=== PATIENT | male | born 1955 | race Caucasian/White ===

== ENCOUNTER → 2018-09-22 08:06 | Outpatient (CLI) | payer OTHER, SELFPAY ==
[2018-09-22 09:12] LABS: Add Manual Diff / Slide Review NO; Basophils Absolute Auto 100 /uL (0-100); Basophils Percent Auto 1.1 % (0-2); Eosinophils Absolute Auto 300 /uL (0-450); Eosinophils Percent Auto 4.8 % (2-4); Hematocrit 45.8 % (41-53); Hemoglobin 15.8 g/dL (13.5-17.5); Lymphocytes Absolute Auto 2100 /uL (1100-4500); Lymphocytes Percent Auto 37.9 % (25-40); Mean Corpuscular HGB Conc 34.4 % (30-36); Mean Corpuscular Hemoglobin 31.1 PG (26-34); Mean Corpuscular Volume 90.3 fL (80-100); Monocytes Absolute Auto 500 /uL (0-900); Monocytes Percent Auto 8.5 % (3-14); Neutrophils Absolute Auto 2700 /uL (1500-7000); Neutrophils Percent Auto 47.7 % (50-75); Platelet Count 232 X10^3/uL (150-400); Red Blood Cell Count 5.07 X10^6/uL (4.5-5.9); Red Cell Distribution Width 12.7 % (11.6-14.8); White Blood Cell Count 5.6 X10^3/uL (4.5-11.0)
[2018-09-22 09:57] LABS: Alanine Aminotransferase 62 IU/L (21-72); Albumin Globulin Ratio 1.6 (1.0-2.8); Alkaline Phosphatase 45 U/L (38-126); Aspartate Aminotransferase 44 IU/L (17-59); Bilirubin Total 0.6 mg/dL (0.2-1.3); Blood Urea Nitrogen 16 mg/dL (9-20); Calcium 8.9 mg/dL (8.4-10.2); Carbon Dioxide 25 mmol/L (22-32); Chloride 107 mmol/L (98-107); Cholesterol 164 mg/dL (140-199); Estimated Glomerular Filt Rate > 60.0 mL/min (>60); Globulin 2.5 g/dL (1.7-4.1); Glucose 102 mg/dL (80-110); HDL Cholesterol 41 mg/dL (40-60); HEMOLYSIS < 15 (0-50); LDL Cholesterol Calculated 107 mg/dL (<100); Potassium 4.2 mmol/L (3.4-5.1); Sodium 138 mmol/L (137-145); Total Protein 6.5 g/dL (6.3-8.2); Triglycerides 79 mg/dL (35-150)
[2018-09-22 10:14] LABS: Prostate Specific Antigen Scrn 1.19 ng/mL (0.1-4.0)
[2018-09-22 10:17] LABS: TSH w/ Reflex to FT4 2.14 uIU/mL (0.47-4.68)
== END ==
PROVIDERS: Visit Provider Nurse Practitioner
DX: F17.200 Nicotine dependence, unspecified, uncomplicated (principal); F32.9 Major depressive disorder, single episode, unspecified; R03.0 Elevated blood-pressure reading, without diagnosis of hypertension; Z00.00 Encounter for general adult medical examination without abnormal findings
CPT/HCPCS: 36415; 80053; 80061; 84443; 85025; G0103

== ENCOUNTER → 2019-04-28 12:39 | Outpatient (CLI) | payer OTHER, SELFPAY | PROVIDERS: PCP Nurse Practitioner; Visit Provider Orthopaedic Surgery Foot and Ankle Surgery | DX: Z01.818 Encounter for other preprocedural examination (principal) | CPT/HCPCS: 93005 ==

== ENCOUNTER → 2020-03-13 11:40 | Outpatient (CLI) | payer OTHER, SELFPAY ==
--- NOTE | 2020-03-13 | DI.MRI.S_ITS ---
PROCEDURE: MR KNEE LT WO CON INDICATIONS: Pain in left knee TECHNIQUE: Noncontrast sagittal PD fast spin echo and T2 fast spin echo with fat saturation, sagittal 3-D FLASH with fat saturation; coronal T1 spin echo and PD fast spin echo with fat saturation, and axial PD fast spin echo with fat saturation through the knee. COMPARISON: [facility] [place], CR, XR KNEE ARTHRITIC SERIES LT, 02/14/2020, 15:13. FINDINGS: Image quality: Excellent. Menisci: There is complex tearing of the posterior horn and body of the medial meniscus with horizontal oblique and shallow radial component. There is mild free edge fibrillation of the body of the lateral meniscus without discrete tear. Cruciate ligaments: The anterior and posterior cruciate ligaments appear intact. Medial structures: The medial collateral ligament appears intact. The semimembranosus tendon insertions and meniscocapsular junction appear intact. Visualized portions of the pes anserinus tendons appear normal. No abnormal bursal fluid. Lateral structures: The lateral collateral ligament, long and short heads of the biceps femoris tendon appear intact. The popliteus tendon appears intact. No signs of posterolateral corner injury. Iliotibial band appears normal. Anterior structures: The quadriceps and patellar tendons appear intact. Patellar alignment is normal. Mild chronic osseous irregularity is seen at the tibial tubercle. Enthesophytes are noted at the distal quadriceps tendon insertion. No femoral trochlear dysplasia or ventral trochlear prominence. No edema in the infrapatellar fat pad. Bones and cartilage: No bone marrow contusions or fractures. Focal high-grade cartilage loss is seen in the central weight-bearing portion of the medial tibial plateau superimposed on generalized college thinning with focal subchondral edema. No focal defect is seen in the lateral or anterior compartment articular cartilage. Joint space: There is a small joint effusion. There is a trace medial popliteal cyst. IMPRESSION: 1. Complex tearing of the posterior horn and body of the medial meniscus with horizontal oblique and shallow radial components. 2. Mild free edge fibrillation of the body of the lateral meniscus without a discrete tear. 3. 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 4. Small joint effusion. Dictated by: Hadley Elise M.D. on 03/13/2020 at 14:07 Approved by: Hadley Elise M.D. on 03/13/2020 at 14:15
== END ==
PROVIDERS: PCP Nurse Practitioner; Referring Provider Orthopaedic Surgery Foot and Ankle Surgery; Visit Provider Orthopaedic Surgery Foot and Ankle Surgery
DX: M25.562 Pain in left knee (principal); S83.232A Complex tear of medial meniscus, current injury, left knee, initial encounter; M94.262 Chondromalacia, left knee; M25.462 Effusion, left knee
CPT/HCPCS: 73721

== ENCOUNTER → 2020-04-06 09:39 | Outpatient (CLI) | payer OTHER, SELFPAY ==
[2020-04-06 10:31] LABS: Add Manual Diff / Slide Review NO; Basophils Absolute Auto 100 /uL (0-100); Basophils Percent Auto 1.1 % (0-2); Eosinophils Absolute Auto 200 /uL (0-450); Eosinophils Percent Auto 3.3 % (2-4); Hematocrit 43.6 % (41-53); Hemoglobin 14.9 g/dL (13.5-17.5); Lymphocytes Absolute Auto 2000 /uL (1100-4500); Lymphocytes Percent Auto 35.3 % (25-40); Mean Corpuscular Hemoglobin 30.3 PG (26-34); Mean Corpuscular Volume 89.1 fL (80-100); Monocytes Absolute Auto 500 /uL (0-900); Monocytes Percent Auto 8.3 % (3-14); Neutrophils Absolute Auto 3000 /uL (1500-7000); Platelet Count 226 X10^3/uL (150-400); Red Cell Distribution Width 12.7 % (11.6-14.8); White Blood Cell Count 5.7 X10^3/uL (4.5-11.0)
[2020-04-06 10:44] LABS: Alanine Aminotransferase 33 IU/L (<50); Albumin 4.1 g/dL (3.5-5.0); Albumin Globulin Ratio 1.6 (1.0-2.8); Alkaline Phosphatase 46 U/L (38-126); Aspartate Aminotransferase 28 IU/L (17-59); BUN Creatinine Ratio 22.4 (6-22); Bilirubin Total 0.6 mg/dL (0.2-1.3); Blood Urea Nitrogen 19 mg/dL (9-20); Calcium 8.8 mg/dL (8.4-10.2); Carbon Dioxide 28 mmol/L (22-32); Chloride 104 mmol/L (98-107); Cholesterol 165 mg/dL (140-199); Estimated Glomerular Filt Rate > 60.0 mL/min (>60); Globulin 2.6 g/dL (1.7-4.1); Glucose 105 mg/dL (80-110); HDL Cholesterol 46 mg/dL (40-60); HEMOLYSIS < 15 (0-50); LDL Cholesterol Calculated 95 mg/dL (<100); Potassium 4.4 mmol/L (3.4-5.1); Sodium 137 mmol/L (137-145); Total Protein 6.7 g/dL (6.3-8.2); Triglycerides 121 mg/dL (35-150)
[2020-04-06 11:15] LABS: Prostate Specific Antigen Scrn 1.19 ng/mL (0.1-4.0)
[2020-04-06 12:13] LABS: Free T3, Triiodothyronine Free 3.42 pg/mL (2.77-5.27); Free T4, Direct Thyroxine 1.13 ng/dL (0.78-2.19)
[2020-04-06 12:27] LABS: Thyroid Stimulating Hormone 1.79 uIU/mL (0.47-4.68)
== END ==
PROVIDERS: PCP Nurse Practitioner; Referring Provider Nurse Practitioner; Visit Provider Nurse Practitioner
DX: R03.0 Elevated blood-pressure reading, without diagnosis of hypertension (principal); Z13.29 Encounter for screening for other suspected endocrine disorder; Z12.5 Encounter for screening for malignant neoplasm of prostate
CPT/HCPCS: 36415; 80053; 80061; 84439; 84443; 84481; 85025; G0103

== ENCOUNTER 2020-09-13 15:59 | Emergency (ER) | payer OTHER, SELFPAY ==
[2020-09-13] VITALS (56 sets, daily range): BP systolic 140–166; BP diastolic 70–109; PULSE 53–77; RESP 16; TEMP 37.1; O2SAT 93–100; BMI 31.5
--- NOTE | 2020-09-13 15:59 | DI.RAD.S_ITS ---
PROCEDURE: XR TIBIA FUBULA RT 2V INDICATIONS: open fracture TECHNIQUE: 2 views of the tibia and fibula were acquired. COMPARISON: [facility], CR, XR ANKLE RT MIN 3V, 09/13/2020, 16:01. FINDINGS: Bones: There is a comminuted anteriorly displaced distal fibular metaphyseal fracture. This demonstrates resultant anterior dislocation at the tibiotalar joint space. Distal fibular fracture is also identified. Soft tissues: No suspicious soft tissue calcifications or masses. IMPRESSION: Comminuted distal tibial fracture with anterior dislocation at the tibiotalar joint space. Distal fibular fracture is also present. Dictated by: Niurka Melo M.D. on 09/13/2020 at 16:23 Approved by: Niurka Melo M.D. on 09/13/2020 at 16:24
--- NOTE | 2020-09-13 15:59 | DI.RAD.S_ITS ---
PROCEDURE: XR ANKLE RT MIN 3V INDICATIONS: open fracture TECHNIQUE: 3 views of the ankle were acquired. COMPARISON: [facility], , XR TIBIA FIBULA RT 2V, 09/13/2020, 16:01. FINDINGS: Bones: Comminuted distal tibial fracture with anterior dislocation at the tibiotalar joint space. There is a displaced distal fibular fracture. Soft tissues: Prominent ankle edema is noted. Achilles tendon appears normal. IMPRESSION: Comminuted distal tibial fracture with anterior tibiotalar joint space dislocation. Displaced distal fibular fracture is noted. Dictated by: Niurka Melo M.D. on 09/13/2020 at 16:25 Approved by: Niurka Melo M.D. on 09/13/2020 at 16:25
--- NOTE | 2020-09-13 16:01 | ED.GENADULT ---
HPI - General Adult General Chief complaint: Extremity Injury, Lower Stated complaint: Fell off 12 ft ladder Time Seen by Provider: 09/13/20 16:01 Source: patient Mode of arrival: EMS Limitations: no limitations History of Present Illness HPI narrative: 65-year-old male not on anticoagulation who is here for evaluation of injuries that he sustained when he was coming down off of a ladder and either slipped off the ladder or the ladder slipped and he fell. Unsure exactly how he landed. He did not hit his head. There was no loss of conscious. EMS was called secondary to an obvious open right leg fracture. He did receive fentanyl prior to arrival. He reports no other injuries with the event. Related Data Previous Rx's Medication Instructions Recorded acyclovir 200 mg capsule 200 mg PO 5XD #60 cap 04/17/20 bupropion HCl 150 mg tablet,12 hr See Rx Instructions .ROUTE 04/17/20 sustained-release .COMPLEX #90 tab sildenafil 50 mg tablet 50 mg PO DAILY PRN #30 tab 04/17/20 Allergies Allergy/AdvReac Type Severity Reaction Status Date / Time pollen extracts Allergy Intermediate Verified 09/13/20 18:03 [POLLEN EXTRACTS] tadalafil [From Cialis] AdvReac Mild nausea, Verified 09/13/20 18:03 diarrhea, GERD. Review of Systems Constitutional Constitutional: Denies fever(s), Denies frequent falls and Denies headache(s) Eyes Eyes: Denies change in vision ENT Ears, Nose, Mouth, and Throat: Reports system reviewed and no additional complaints, except as documented and Denies headache(s) Cardiovascular Cardiovascular: Denies chest pain and Denies dyspnea Respiratory Respiratory: Denies dyspnea Gastrointestinal Gastrointestinal: Denies abdominal pain, Denies nausea and Denies vomiting Genitourinary Genitourinary: Denies dysuria Genitourinary: Denies dysuria Musculoskeletal Musculoskeletal: Denies back pain and Denies myalgias Integumentary/Breasts Comments: Open fracture right tibia Neurologic Neurologic: Denies frequent falls and Denies headache(s) Psychiatric Psychiatric: Reports system reviewed and no additional complaints, except as documented Hematologic/Lymphatic On Anticoagulants: No Allergic/Immunologic Allergic/Immunologic: Reports system reviewed and no additional complaints, except as documented Patient History Medical History Achilles tendon rupture Actinic keratosis (Unknown) Alcohol cessation counseling Alcohol use disorder (05/19/17) Basal cell carcinoma (07/2017) Cessation of tobacco use in previous 12 months Colon polyps (~2013) Current smoker (05/19/17) Depression (Unknown) Herpes (~1960) Left knee pain Measles Mumps Tear of meniscus of left knee Family History (Updated 08/05/17 @ 00:00 by Conversion Provider) Grandfather Cancer Sister Age: 66 Diabetes mellitus Hypertension Father No problems noted. Mother No problems noted. Grandmother No problems noted. Grandfather No problems noted. Grandmother No problems noted. Social History Smoking Status: Current every day smoker (quitting) alcohol intake: current substance use type: marijuana Smoking Status: Current every day smoker (quitting) Exam Initial Vital Signs Initial Vital Signs: Vital Signs Pulse Rate 63 09/13/20 16:09 Pulse Oximetry 96 09/13/20 16:09 Const General: cooperative Limitations: mental status not altered HENAZ Head: normal to inspection and normocephalic Nose: external nose normal Face and sinus: normal facial exam Eyes General: appearance normal, both eyes and all related structures Pupils: PERRL Chest Chest: No crepitus and No tenderness Resp Effort & Inspection: normal respiratory effort Auscultation: clear to auscultation bilaterally Cardio Rate: regular rate Rhythm: regular rhythm Pulses: dorsalis pedis present on the right GI Inspection: non-distended Palpation: soft, No firm and No tender Back/Spine/Pelvis Cervical Spine: No cervical spinal tenderness Thoracic/Lumbar Spine: No thoracic spinal tenderness and No lumbar spinal tenderness Sacroiliac Joints: nontender Skin Other: Open fracture to the medial aspect of the right distal tibia. Neuro General: patient alert, patient awake and patient oriented x3 Cognition: normal cognition Speech: speech normal Sensory Exam: no sensory deficits noted Other: Sensation intact to light touch right foot Extrem General: capillary refill normal Other: The bilateral upper extremities in the left lower extremity are unremarkable. His pelvis is stable. Has no tenderness to his right hip. His right knee is unremarkable. Patient does have a obvious open fracture to the right distal tibia. Psych Appearance: grossly normal and well kempt Procedures Orthopedic Fracture Reduction Fracture #1: Time Out Performed: Yes Side: right Fracture Reduction Location: tibia and fibula Analgesia: procedural sedation Technique: direct manipulation Post Reduction X-rays Demonstrate: acceptable reduction Post-reduction neuro exam: intact Post-reduction vascular exam: intact Splint Applied: Yes Patient Tolerated Procedure: Well and No complications Orthopedic Splinting/Casting Injury #1: Side: right Lower Extremity Injury Location: ankle Lower Extremity Immobilizer: posterior splint and stirrup splint Post splinting neuro exam: intact Post splinting vascular exam: intact Placed by: Provider Procedural Sedation Consent signed: No Time out performed: Yes Indication: fracture/dislocation reduction Presedation Evaluation: See HPI ASA Class: II Mallampati Airway Classification: Class II Preparation: laboratory monitor applied, pulse oximeter, capnometry used and supplemental O2 applied IV Propofol dose (mg): 120 Intraservice time/total sedation time (min): 15 ED Sedation Level: Moderate (Concious) Patient Tolerated Procedure: Well and No complications Complications: none Scores GCS Jamari coma scale eye opening: Spontaneous Jamari coma scale verbal response: Orientated Sarver coma scale motor response: Obey commands Sarver coma scale total score: 15 Nexus Score for C-Spine Focal Neurologic deficit present: No Midline spinal tenderness present: No Altered level of conciousness present: No Intoxication present: No Distracting Injury Present: No Nexus Criteria for C-spine: 0 Course Orders Ordered: ED Orders 09/13/20 15:59 XR ankle RT min 3V Stat XR tibia fibula RT 2V Stat 09/13/20 16:00 Basic Metabolic Panel Stat Complete Blood Count AUTO DIFF Stat 09/13/20 16:03 COVID19 - ADMIT ([facility] swab/PCR) Stat 09/13/20 17:04 RT Consult Eval and Treat Now 09/13/20 17:38 CT LE RT wo con Stat Sodium Chloride (Normal Saline 0.9%) 1,000 mls @ 125 mls/hr IV CONT WENDY Last Infusion: 09/13/20 18:50 Dose: 0 mls/hr Documented by: [email or web address] Admin: 09/13/20 16:23 Dose: 125 mls/hr Documented by: [email or web address] Discontinued Medications Cefazolin Sodium (Cefazolin 1 Gm Vial) 2 gm IV NOW ONE Stop: 09/13/20 16:00 Last Admin: 09/13/20 16:22 Dose: 2 gm Documented by: [email or web address] Diphtheria/Tetanus/Acell Pertussis (Tet,Diph,Pertuss(Acell),Vac/Pf 0.5 Ml Syringe) 0.5 ml IM .ONCE ONE Stop: 09/13/20 16:00 Last Admin: 09/13/20 16:22 Dose: 0.5 ml Documented by: [email or web address] Hydromorphone HCl (Hydromorphone 1 Mg Inj) 1 mg IV NOW ONE Stop: 09/13/20 16:20 Last Admin: 09/13/20 16:26 Dose: 1 mg Documented by: [email or web address] Hydromorphone HCl (Hydromorphone 1 Mg Inj) 1 mg IV NOW ONE Stop: 09/13/20 19:05 Last Admin: 09/13/20 19:14 Dose: 1 mg Documented by: [email or web address] Propofol (Propofol 200 Mg/20 Ml Vial) 100 mg IV NOW ONE Stop: 09/13/20 17:05 Last Admin: 09/13/20 18:06 Dose: Not Given Documented by: [email or web address] Vital Signs Vital signs: Vital Signs - 8 hr 09/13/20 16:09 09/13/20 16:10 09/13/20 16:15 Pulse Rate 63 59 L 53 L Respiratory Rate Blood Pressure Pulse Oximetry 96 96 99 09/13/20 16:20 09/13/20 16:25 09/13/20 16:30 Pulse Rate 59 L 54 L 57 L Respiratory Rate Blood Pressure 143/109 H Pulse Oximetry 97 96 97 09/13/20 16:35 09/13/20 16:40 09/13/20 16:45 Pulse Rate 58 L 56 L 56 L Respiratory Rate Blood Pressure Pulse Oximetry 97 96 95 09/13/20 16:50 09/13/20 16:55 09/13/20 17:00 Pulse Rate 57 L 54 L 57 L Respiratory Rate Blood Pressure Pulse Oximetry 96 97 98 09/13/20 17:01 09/13/20 17:05 09/13/20 17:10 Pulse Rate 56 L 54 L 62 Respiratory Rate Blood Pressure 156/72 H Pulse Oximetry 99 98 99 09/13/20 17:12 09/13/20 17:15 09/13/20 17:20 Pulse Rate 59 L 63 55 L Respiratory Rate Blood Pressure 151/72 H 166/78 H 160/89 H Pulse Oximetry 99 98 100 09/13/20 17:25 09/13/20 17:26 09/13/20 17:30 Pulse Rate 61 57 L 62 Respiratory Rate 16 Blood Pressure 161/99 H 154/83 H Pulse Oximetry 100 100 09/13/20 17:35 09/13/20 17:40 09/13/20 17:45 Pulse Rate 59 L 58 L 57 L Respiratory Rate Blood Pressure 142/75 H 157/82 H 156/71 H Pulse Oximetry 100 100 100 09/13/20 18:00 09/13/20 18:05 09/13/20 18:10 Pulse Rate 62 58 L 64 Respiratory Rate Blood Pressure Pulse Oximetry 99 98 97 09/13/20 18:15 09/13/20 18:20 09/13/20 18:25 Pulse Rate 60 64 69 Respiratory Rate Blood Pressure Pulse Oximetry 96 93 98 09/13/20 18:30 09/13/20 18:35 09/13/20 18:40 Pulse Rate 69 73 64 Respiratory Rate Blood Pressure Pulse Oximetry 95 96 98 09/13/20 18:45 09/13/20 18:50 Pulse Rate 68 62 Respiratory Rate Blood Pressure Pulse Oximetry 98 99 Medical Decision Making Lab Data Lab results reviewed: Yes I reviewed the patient's lab results. Result diagrams: 09/13/20 16:00 09/13/20 16:00 Labs: Lab Results 09/13/20 09/13/20 09/13/20 Range/Units 16:00 16:00 16:03 WBC 8.7 (4.5-11.0) X10^3/uL RBC 4.72 (4.5-5.9) X10^6/uL Hgb 14.6 (13.5-17.5) g/dL Hct 42.6 (41-53) % MCV 90.2 (80-100) fL MCH 30.9 (26-34) PG MCHC 34.2 (30-36) % RDW 13.2 (11.6-14.8) % Plt Count 225 (150-400) X10^3/uL Neut % (Auto) 68.0 (50-75) % Lymph % (Auto) 23.7 L (25-40) % [place] % (Auto) 6.3 (3-14) % Eos % (Auto) 1.1 L (2-4) % Baso % (Auto) 0.9 (0-2) % Neut # (Auto) 5900 (4176-7208) /uL Lymph # (Auto) 2100 (3447-3199) /uL [place] # (Auto) 600 (0-900) /uL Eos # (Auto) 100 (0-450) /uL Baso # (Auto) 100 (0-100) /uL Sodium 138 (137-145) mmol/L Potassium 3.6 (3.4-5.1) mmol/L Chloride 106 (98-107) mmol/L Carbon Dioxide 26 (22-32) mmol/L BUN 16 (9-20) mg/dL Creatinine 1.03 (0.66-1.25) mg/dL Estimated GFR > 60.0 (>60) mL/min BUN/Creatinine Ratio 15.5 (6-22) Glucose 115 H (80-110) mg/dL Calcium 8.9 (8.4-10.2) mg/dL SARS-CoV-2 (PCR) Negative (Negative) Imaging Data Extremity x-ray #1: Radiologist's Impression: [address] [id number] ReportSigned Patient: Aric Almonte WMR#: [id number]: 1955cct:[id number]/Sex: 65 / MDate of Service: 09/13/20Loc: EDAccession Number: [id number] Procedure: XR ankle RT min 3V Ordering Provider: Chase Clarke D.O. PROCEDURE: XR ANKLE RT MIN 3V INDICATIONS: open fracture TECHNIQUE: 3 views of the ankle were acquired. COMPARISON: [facility], , XR TIBIA FIBULA RT 2V, 09/13/2020, 16:01. FINDINGS: Bones: Comminuted distal tibial fracture with anterior dislocation at the tibiotalar joint space. There is a displaced distal fibular fracture. Soft tissues: Prominent ankle edema is noted. Achilles tendon appears normal. IMPRESSION: Comminuted distal tibial fracture with anterior tibiotalar joint space dislocation. Displaced distal fibular fracture is noted. Dictated by: Niurka Melo M.D. on 09/13/2020 at 16:25 Approved by: Niurka Melo M.D. on 09/13/2020 at 16:25 Extremity x-ray #2: Radiologist's Impression: [address] [id number] ReportSigned Patient: Aric Almonte WMR#: [id number]: 1955cct:[id number]/Sex: 65 / MDate of Service: 09/13/20Loc: EDAccession Number: [id number] Procedure: XR tibia fibula RT 2V Ordering Provider: Chase Clarke D.O. PROCEDURE: XR TIBIA FUBULA RT 2V INDICATIONS: open fracture TECHNIQUE: 2 views of the tibia and fibula were acquired. COMPARISON: [facility], CR, XR ANKLE RT MIN 3V, 09/13/2020, 16:01. FINDINGS: Bones: There is a comminuted anteriorly displaced distal fibular metaphyseal fracture. This demonstrates resultant anterior dislocation at the tibiotalar joint space. Distal fibular fracture is also identified. Soft tissues: No suspicious soft tissue calcifications or masses. IMPRESSION: Comminuted distal tibial fracture with anterior dislocation at the tibiotalar joint space. Distal fibular fracture is also present. Dictated by: Niurka Melo M.D. on 09/13/2020 at 16:23 Approved by: Niurka Melo M.D. on 09/13/2020 at 16:[address]: Radiologist's Impression: [address] [id number] Scan ReportSigned Patient: Aric Almonte WMR#: [id number]: 1955cct:[id number]/Sex: 65 / MDate of Service: 09/13/20Loc: EDAccession Number: [id number] Procedure: CT LE RT wo con Ordering Provider: Chase Clarke D.O. PROCEDURE: CT LE RT WO CON INDICATIONS: Open fracture /dislocation TECHNIQUE: Noncontrast 1 mm axial sections acquired of the right tibia and fibula from the knee joint through the ankle, with coronal and sagittal reformats. COMPARISON: None. FINDINGS: Image quality: Excellent. Bones: Remarkably comminuted fracture of the distal tibia involving the distal diametaphyseal region extending to the articular surface. The bone is pretty pulverized. There is extensive associated air associated with the bony fragments consistent with previous open fracture. There are numerous tiny fracture fragments versus radiopaque foreign bodies in the distal soft tissues. There is air present in the ankle joint itself. There is a comminuted fracture of the fibular head. It is near anatomic. There is a comminuted distal shaft fracture of the fibula. There are tiny fracture fragments in the ankle joint. The talus and calcaneus appear intact. Soft tissues: Flecks of air are present in multiple muscle structures. There are numerous tiny densities which may represent pieces of bone associated with the distal tibial fracture versus additional radiopaque foreign bodies. There is evidence of medial ankle laceration and extensive medial subcutaneous air. IMPRESSION: 1. Previously open, remarkably comminuted, pulverized distal tibial fracture involving the diametaphyseal region extending to the articular surface with extensive air present within the expected location of the distal diametaphyseal region of the tibia, innumerable tiny bony fragments, gas and fragments in the joint, and possible radiopaque foreign bodies in soft tissues. 2. Associated soft tissue laceration and soft tissue gas. 3. Comminuted fibular head fracture. 4. Comminuted distal shaft fracture of the fibula. Dictated by: Jaspal Mcnair M.D. on 09/13/2020 at 18:35 Approved by: Jaspal Mcnair M.D. on 09/13/2020 at 18:45 MDM Narrative Medical decision making narrative: Patient is alert oriented x3. GCS of 15. Cervical spine was cleared by nexus criteria. I feel that the right ankle injury was not a distracting injury at the time my evaluation of his neck. He has no other signs of trauma except for the right ankle injury. His abdomen was soft. His pelvis was stable. Patient's tetanus was updated. He was given 2 g of Ancef. The open fracture was irrigated with 2 L of fluid. The fracture was then reduced. Neurovascular intact prior to the procedure and also after the procedure. A splint was placed after the open wound was covered with Vaseline gauze and nonadherent bandage. Patient tolerated the sedation well. Afterwards he reported of much improvement of his discomfort. He could wiggle his toes. I did discuss the case with Dr. Uriarte with Orthopedic surgery who recommended patient be transferred to a facility with orthopedic trauma capability. I discussed the case with [facility]. Dr. Quinn who accepts the patient in transfer. I did discuss the injuries with the patient. We did discuss the need for transfer. He expressed understanding. Patient is currently stable for transfer. Discharge Plan Departure Patient Disposition: [facility] Clinical Impression: Fall from ladder Fracture of distal end of right tibia Qualifiers: Encounter type: initial encounter Fracture type: open Fracture morphology: pilon Fracture alignment: displaced Fracture of distal end of right fibula Qualifiers: Encounter type: initial encounter Fracture type: open Fracture morphology: unspecified fracture morphology Fracture of proximal end of right fibula Qualifiers: Encounter type: initial encounter Fracture type: closed Fracture morphology: unspecified fracture morphology Qualified Code(s): S82.831A - Other fracture of upper and lower end of right fibula, initial encounter for closed fracture Prescriptions: No Action acyclovir 200 mg capsule 200 mg PO 5XD Qty: 60 RF: 3 bupropion HCl 150 mg tablet sustained-release 12 hr See Rx Instructions .ROUTE .COMPLEX Qty: 90 RF: 3 sildenafil 50 mg tablet 50 mg PO DAILY PRN (Reason: sexual activity) Qty: 30 RF: 5 Referrals: Emmy Bravo ARNP [Primary Care Provider] -
[2020-09-13 16:10] LABS: Add Manual Diff / Slide Review NO; Basophils Absolute Auto 100 /uL (0-100); Basophils Percent Auto 0.9 % (0-2); Eosinophils Absolute Auto 100 /uL (0-450); Eosinophils Percent Auto 1.1 % (2-4); Hematocrit 42.6 % (41-53); Hemoglobin 14.6 g/dL (13.5-17.5); Lymphocytes Absolute Auto 2100 /uL (1100-4500); Lymphocytes Percent Auto 23.7 % (25-40); Mean Corpuscular HGB Conc 34.2 % (30-36); Mean Corpuscular Hemoglobin 30.9 PG (26-34); Mean Corpuscular Volume 90.2 fL (80-100); Monocytes Absolute Auto 600 /uL (0-900); Monocytes Percent Auto 6.3 % (3-14); Neutrophils Absolute Auto 5900 /uL (1500-7000); Platelet Count 225 X10^3/uL (150-400); Red Blood Cell Count 4.72 X10^6/uL (4.5-5.9); Red Cell Distribution Width 13.2 % (11.6-14.8); White Blood Cell Count 8.7 X10^3/uL (4.5-11.0)
[2020-09-13 16:20] LABS: BUN Creatinine Ratio 15.5 (6-22); Blood Urea Nitrogen 16 mg/dL (9-20); Calcium 8.9 mg/dL (8.4-10.2); Carbon Dioxide 26 mmol/L (22-32); Chloride 106 mmol/L (98-107); Estimated Glomerular Filt Rate > 60.0 mL/min (>60); Glucose 115 mg/dL (80-110); HEMOLYSIS < 15 (0-50); Potassium 3.6 mmol/L (3.4-5.1); Sodium 138 mmol/L (137-145)
[2020-09-13] MEDS: CEFAZOLIN 1 GM VIAL 2 GM IV (16:22)
[2020-09-13] MEDS: TET,DIPH,PERTUSS(ACELL),VAC/PF 0.5 ML SYRINGE IM (16:22)
[2020-09-13] MEDS: SODIUM CHLORIDE 0.9% 1,000 ML 125 ML IV (16:23)
[2020-09-13] MEDS: HYDROMORPHONE 1 MG INJ IV ×2 (16:26→19:14)
[2020-09-13] MEDS: propofoL 200 MG/20 ML VIAL IV (17:26)
--- NOTE | 2020-09-13 17:38 | DI.CT.S_ITS ---
PROCEDURE: CT LE RT WO CON INDICATIONS: Open fracture /dislocation TECHNIQUE: Noncontrast 1 mm axial sections acquired of the right tibia and fibula from the knee joint through the ankle, with coronal and sagittal reformats. COMPARISON: None. FINDINGS: Image quality: Excellent. Bones: Remarkably comminuted fracture of the distal tibia involving the distal diametaphyseal region extending to the articular surface. The bone is pretty pulverized. There is extensive associated air associated with the bony fragments consistent with previous open fracture. There are numerous tiny fracture fragments versus radiopaque foreign bodies in the distal soft tissues. There is air present in the ankle joint itself. There is a comminuted fracture of the fibular head. It is near anatomic. There is a comminuted distal shaft fracture of the fibula. There are tiny fracture fragments in the ankle joint. The talus and calcaneus appear intact. Soft tissues: Flecks of air are present in multiple muscle structures. There are numerous tiny densities which may represent pieces of bone associated with the distal tibial fracture versus additional radiopaque foreign bodies. There is evidence of medial ankle laceration and extensive medial subcutaneous air. IMPRESSION: 1. Previously open, remarkably comminuted, pulverized distal tibial fracture involving the diametaphyseal region extending to the articular surface with extensive air present within the expected location of the distal diametaphyseal region of the tibia, innumerable tiny bony fragments, gas and fragments in the joint, and possible radiopaque foreign bodies in soft tissues. 2. Associated soft tissue laceration and soft tissue gas. 3. Comminuted fibular head fracture. 4. Comminuted distal shaft fracture of the fibula. Dictated by: Jaspal Mcnair M.D. on 09/13/2020 at 18:35 Approved by: Jaspal Mcnair M.D. on 09/13/2020 at 18:45
[2020-09-13 18:02] LABS: COVID19 - ADMIT (NP swab/PCR) Negative (Negative)
[2020-09-13] MEDS: HYDROMORPHONE 1 MG INJ (21:14)
== END 2020-09-13 21:23 | disposition short-term general hospital (02) ==
PROVIDERS: Emergency Provider Emergency Medicine; PCP Nurse Practitioner
DX: S82.301B Unspecified fracture of lower end of right tibia, initial encounter for open fracture type I or II (principal); S82.401B Unspecified fracture of shaft of right fibula, initial encounter for open fracture type I or II; S82.491A Other fracture of shaft of right fibula, initial encounter for closed fracture; Z23 Encounter for immunization; W11.XXXA Fall on and from ladder, initial encounter; Z20.822 Contact with and (suspected) exposure to COVID-19
CPT/HCPCS: 27752; 73590; 73610; 73700; 80048; 85025; 87635; 90471; 96361; 96374; 96375; 96376; 99152; 99284; 99285; C9803; 90715; J0690; J1170; J2704

== ENCOUNTER → 2020-09-29 10:16 | Outpatient (CLI) | payer OTHER, SELFPAY ==
[2020-09-29 11:52] LABS: COVID19 -Nasal RAPID Negative (Negative)
== END ==
PROVIDERS: PCP Nurse Practitioner; Visit Provider Physician Assistant
DX: Z01.812 Encounter for preprocedural laboratory examination (principal); Z20.822 Contact with and (suspected) exposure to COVID-19
CPT/HCPCS: 87635

== ENCOUNTER → 2022-06-12 07:15 | Outpatient (CLI) | payer OTHER, SELFPAY ==
[2022-06-12 08:40] LABS: Alanine Aminotransferase 34 IU/L (<50); Albumin 4.1 g/dL (3.5-5.0); Albumin Globulin Ratio 1.5 (1.0-2.8); Alkaline Phosphatase 57 U/L (38-126); Aspartate Aminotransferase 30 IU/L (17-59); BUN Creatinine Ratio 20.5 (6-22); Bilirubin Total 0.6 mg/dL (0.2-1.3); Blood Urea Nitrogen 18 mg/dL (9-20); Calcium 8.5 mg/dL (8.4-10.2); Carbon Dioxide 29 mmol/L (22-32); Chloride 103 mmol/L (98-107); Cholesterol 194 mg/dL (140-199); Estimated Glomerular Filt Rate > 60 mL/min (>60); Globulin 2.8 g/dL (1.7-4.1); Glucose 97 mg/dL (80-110); HDL Cholesterol 49 mg/dL (40-60); HEMOLYSIS < 15 (0-50); LDL Cholesterol Calculated 123 mg/dL (<100); Potassium 4.2 mmol/L (3.4-5.1); Sodium 139 mmol/L (137-145); Total Protein 6.9 g/dL (6.3-8.2); Triglycerides 109 mg/dL (35-150)
[2022-06-12 09:08] LABS: Free T3, Triiodothyronine Free 4.27 pg/mL (2.77-5.27); Free T4, Direct Thyroxine 0.96 ng/dL (0.78-2.19)
[2022-06-12 09:10] LABS: Prostate Specific Antigen Scrn 2.26 ng/mL (0.1-4.0)
[2022-06-12 09:21] LABS: Thyroid Stimulating Hormone 2.77 uIU/mL (0.47-4.68)
[2022-06-12 16:34] LABS: HIV 1 & 2 Ab/Ag 4th Gen Combo NEGATIVE (NEGATIVE); Hep C Virus Ab w/Reflex Quant NEGATIVE s/c (NEGATIVE)
== END ==
PROVIDERS: PCP Nurse Practitioner; Referring Provider Nurse Practitioner; Visit Provider Nurse Practitioner
DX: E78.2 Mixed hyperlipidemia (principal); Z12.5 Encounter for screening for malignant neoplasm of prostate; F32.9 Major depressive disorder, single episode, unspecified; F52.21 Male erectile disorder; R03.0 Elevated blood-pressure reading, without diagnosis of hypertension; Z79.899 Other long term (current) drug therapy; Z11.4 Encounter for screening for human immunodeficiency virus [HIV]; Z11.59 Encounter for screening for other viral diseases
CPT/HCPCS: 36415; 80053; 80061; 84439; 84443; 84481; 86803; 87389; G0103

== ENCOUNTER → 2022-06-13 10:18 | Outpatient (CLI) | payer OTHER, SELFPAY ==
[2022-06-16 12:08] LABS: Fecal Immunochemical Test Negative (Negative)
== END ==
PROVIDERS: PCP Nurse Practitioner; Referring Provider Nurse Practitioner; Visit Provider Nurse Practitioner
DX: Z12.11 Encounter for screening for malignant neoplasm of colon (principal)
CPT/HCPCS: 82274

== ENCOUNTER → 2022-07-01 10:37 | Outpatient (CLI) | payer OTHER, SELFPAY ==
--- NOTE | 2022-07-01 10:01 | DI.DEXA.S_ITS ---
Indication: Referring Provider: YANELI BABB Study: Bone densitometry was performed. Exam Date: July 01, 2022 Accession number: [id number] Bone Density: Region BMD T-score Z-score Classification AP Spine(L1-L4) 0.990 -0.5 -0.1 Normal Femoral Neck (Left) 0.781 -0.6 0.0 Normal Total Hip (Left) 1.007 0.5 0.4 Normal Femoral Neck (Right) 0.752 -0.9 -0.2 Normal Total Hip (Right) 0.912 -0.2 -0.2 Normal Total Hip Mean 0.959 0.2 0.1 Normal World Health Organization criteria for BMD impression classify patients as: Normal (T-score at or above -1.0), Osteopenia (T-score between -1.0 and -2.5), or Osteoporosis (T-score at or below -2.5). 10-year Fracture Risk: FRAX not reported because: All T-scores for Spine Total, Hip Total, Femoral Neck at or above -1.0 Impression: The patient has normal bone mass. Discussion: BONE DENSITY IS ABOVE THE MINIMUM DESIRABLE LEVEL AT ALL SKELETAL SITES TESTED. This patient?s bone mineral density is above the minimum desirable level (T-score -1.0 or better) at all sites measured. The patient should follow a healthful lifestyle (good nutrition with adequate calcium and vitamin D, and appropriate weight-bearing exercise). Follow-Up: Consider repeating this study in 5 years or sooner if there is some new clinical indication. Reported by: KIMMY on 07/01/2022 10:17:00 AM.
--- NOTE | 2022-07-01 10:38 | DI.CT.S_ITS ---
PROCEDURE: CT CHEST WO CON INDICATIONS: screening AAA TECHNIQUE: Noncontrast 2.0-2.5 mm thick sections acquired from the pulmonary apices to the posterior costophrenic angles. 7 mm thick axial MIP, and 5 mm coronal and sagittal reformats were then acquired. A low radiation dose technique was utilized. COMPARISON: None. FINDINGS: Image quality: Diagnostic, given the low radiation dose technique. Lungs and pleura: No acute airspace disease. No suspicious pulmonary nodules identified. No septal thickening or nodularity. No pleural effusion or pneumothorax. Visualized airways are patent and of normal caliber. Mediastinum: Heart size is normal. Coronary atherosclerotic vascular calcifications are noted. No pericardial effusion. No mediastinal adenopathy by size criteria. Thoracic aorta and central pulmonary arteries are normal in size. Scattered atherosclerotic calcifications of the thoracic aorta. Esophagus is normal in caliber. No hiatal hernia. Bones and chest wall: No suspicious bony lesions. No vertebral body compression fractures. No axillary or supraclavicular adenopathy by size criteria. Thyroid gland is unremarkable. Abdomen: Visualized upper abdomen solid organs and bowel loops appear normal in the absence of contrast. IMPRESSION: No discrete pulmonary nodules identified. No acute cardiopulmonary abnormalities. LUNG-RADS 1; recommend continued annual lung cancer screening with low dose chest CT, as long as the patient meets the published criteria. Dictated by: Jadon Colin M.D. on 07/01/2022 at 15:12 Approved by: Jadon Colin M.D. on 07/01/2022 at 15:14
--- NOTE | 2022-07-01 10:38 | DI.US.S_ITS ---
PROCEDURE: US ABD AORTA ANEURYSM SCREEN INDICATIONS: screening AAA TECHNIQUE: Real-time scanning was performed of the aorta and proximal common iliac arteries, with image documentation. COMPARISON: None. FINDINGS: Aorta: Abdominal aorta is normal in caliber throughout its length. The aorta measures 2.8 cm proximally, 2.0 cm at the midportion, and 1.9 cm distally. A trace amount of plaque is seen in the aorta in the mid to distal portion. Iliacs: The right common iliac artery measures 1.4 cm and the left common iliac artery measures 1.7 cm. A fat containing umbilical hernia containing fluid which is non reducible with a neck measuring 1.5 x 1.2 cm is seen. IMPRESSION: 1. Normal abdominal aorta with no aneurysm. 2. Incidentally noted fat containing non reducible periumbilical hernia. Dictated by: Adin Torres M.D. on 07/01/2022 at 14:42 Approved by: Adin Torres M.D. on 07/01/2022 at 14:44
== END ==
PROVIDERS: PCP Nurse Practitioner; Referring Provider Nurse Practitioner; Visit Provider Nurse Practitioner
DX: I70.0 Atherosclerosis of aorta (principal); I25.10 Atherosclerotic heart disease of native coronary artery without angina pectoris; S82.91XA Unspecified fracture of right lower leg, initial encounter for closed fracture; M89.9 Disorder of bone, unspecified; Z13.6 Encounter for screening for cardiovascular disorders; K42.0 Umbilical hernia with obstruction, without gangrene; F17.200 Nicotine dependence, unspecified, uncomplicated
CPT/HCPCS: 71250; 76706; 77080

== ENCOUNTER → 2023-06-18 09:18 | Outpatient (CLI) | payer OTHER, SELFPAY ==
[2023-06-18 09:59] LABS: Add Manual Diff / Slide Review NO; Basophils Absolute Auto 100 /uL (0-100); Basophils Percent Auto 1.1 % (0-2); Eosinophils Absolute Auto 200 /uL (0-450); Eosinophils Percent Auto 3.1 % (2-4); Hemoglobin 15.7 g/dL (13.5-17.5); Lymphocytes Absolute Auto 2100 /uL (1100-4500); Lymphocytes Percent Auto 37.8 % (25-40); Mean Corpuscular HGB Conc 34.1 % (30-36); Mean Corpuscular Hemoglobin 30.1 PG (26-34); Mean Corpuscular Volume 88.1 fL (80-100); Monocytes Absolute Auto 400 /uL (0-900); Monocytes Percent Auto 6.9 % (3-14); Neutrophils Absolute Auto 2900 /uL (1500-7000); Neutrophils Percent Auto 51.1 % (50-75); Platelet Count 230 X10^3/uL (150-400); Red Blood Cell Count 5.22 X10^6/uL (4.5-5.9); Red Cell Distribution Width 13.1 % (11.6-14.8); White Blood Cell Count 5.6 X10^3/uL (4.5-11.0)
[2023-06-18 10:40] LABS: Alanine Aminotransferase 30 IU/L (<50); Albumin 4.1 g/dL (3.5-5.0); Albumin Globulin Ratio 1.5 (1.0-2.8); Alkaline Phosphatase 51 U/L (38-126); Aspartate Aminotransferase 26 IU/L (17-59); Bilirubin Total 0.7 mg/dL (0.2-1.3); Blood Urea Nitrogen 13 mg/dL (9-20); Calcium 9.2 mg/dL (8.4-10.2); Carbon Dioxide 28 mmol/L (22-32); Chloride 107 mmol/L (98-107); Cholesterol 190 mg/dL (140-199); Estimated Glomerular Filt Rate > 60 mL/min (>60); Globulin 2.7 g/dL (1.7-4.1); Glucose 98 mg/dL (80-110); HDL Cholesterol 48 mg/dL (40-60); HEMOLYSIS < 15 (0-50); LDL Cholesterol Calculated 116 mg/dL (<100); Potassium 4.2 mmol/L (3.4-5.1); Sodium 138 mmol/L (137-145); Total Protein 6.8 g/dL (6.3-8.2); Triglycerides 130 mg/dL (35-150)
[2023-06-18 11:11] LABS: TSH w/ Reflex to FT4 1.97 uIU/mL (0.47-4.68)
[2023-06-18 11:13] LABS: Prostate Specific Antigen Scrn 3.01 ng/mL (0.1-4.0)
== END ==
PROVIDERS: Family Medicine; PCP Nurse Practitioner; Referring Provider Nurse Practitioner; Visit Provider Nurse Practitioner
DX: E78.2 Mixed hyperlipidemia (principal); Z12.5 Encounter for screening for malignant neoplasm of prostate
CPT/HCPCS: 36415; 80053; 80061; 84443; 85025; G0103

== ENCOUNTER 2023-10-13 07:31 | Day surgery (SDC) | payer OTHER, SELFPAY ==
[2023-10-13] MEDS: LACTATED RINGERS 1,000 ML 42 ML IV (07:54)
[2023-10-13 07:59] VITALS: BP 153/70; PULSE 54; RESP 16; TEMP 36.2; O2SAT 96
--- NOTE | 2023-10-13 08:07 | P.HP_ITS ---
History of Present Illness History of Present Illness Date Patient Seen: 10/13/23 Time Patient Seen: 08:07 Chief complaint: Screening Colonoscopy Narrative: 68-year-old man here for screening colonoscopy. Last colonoscopy 2013. No family history of colon cancer. No abdominal concerns today [facility] Medical History Hyperlipidemia, mixed Left knee pain Tear of meniscus of left knee Achilles tendon rupture Alcohol cessation counseling Cessation of tobacco use in previous 12 months Basal cell carcinoma (07/2017) Actinic keratosis (Unknown) Colon polyps (~2013) Depression (Unknown) Measles Mumps Herpes (~1959) Current smoker (05/19/17) Alcohol use disorder (05/19/17) Family History Grandfather Cancer Sister Age: 69 Diabetes mellitus Hypertension Father No problems noted. Mother No problems noted. Grandmother No problems noted. Grandfather No problems noted. Grandmother No problems noted. Social History Smoking Status: Current some day smoker alcohol intake: current substance use type: marijuana Meds Home Medications and Allergies Home Medications Medication Instructions Recorded Confirmed Type tadalafil 5 mg tablet 5 mg PO DAILY #30 tabs 02/03/23 10/13/23 Rx acyclovir 200 mg capsule 200 mg PO 10/13/23 History Allergies Allergy/AdvReac Type Severity Reaction Status Date / Time pollen extracts Allergy Intermediate Verified 10/13/23 07:52 [POLLEN EXTRACTS] Exam Vital Signs (past 8 hours): - 10/13/23 07:59 Temperature 97.1 F L Pulse Rate 54 L Respiratory Rate 16 Blood Pressure 153/70 H Pulse Oximetry 96 Oxygen Delivery Method Room Air Oxygen Delivery Method Room Air Narrative Exam Narrative: General adult man alert oriented no acute distress Chest nonlabored respiration Extremities warm well perfused Assessment & Plan Assessment & Plan narrative: The patient requires colorectal screening and colonoscopy is recommended. Tech nical details were discussed. Risks, benefits, alternatives explained. Risks including but not limited to myocardial infarction, aspiration, bleeding, pain, missed lesion, incomplete examination, need for further radiographic studies, intestinal injury, and need for major abdominal surgery were discussed. All questions were answered to their satisfaction, and they are in agreement with this plan.
[2023-10-13 08:34] VITALS: BP 123/71; PULSE 51; RESP 12; TEMP 36.4; O2SAT 96
[2023-10-13 08:39] VITALS: BP 130/69; PULSE 49; RESP 14; O2SAT 96
--- NOTE | 2023-10-13 08:42 | P.OP.COLON_ITS ---
Operative Date/Time/Diagnoses Date of procedure: 10/13/23 Time of procedure: 08:42 Pre-op diagnosis: Colorectal screening Procedure & Clinicians Study performed: Screening colonoscopy Same procedure as scheduled: Yes Indications: Colorectal screening Surgeon: Mario Bell Procedure Notes Procedure in detail: The history and physical was performed/updated and the patient is ASA class is 2. The procedure was discussed in detail with the patient. Potential risks co mplications including infection, bleeding, missed diagnosis, perforation, need for surgery, and were explained. Their questions were answered and informed consent was obtained. Patient was brought to the procedure room and placed standard monitoring equipment. The patient's vital signs were monitored continuously throughout the entire procedure. Prior to starting time-out was performed. The patient was placed in the left lateral recumbent position. Procedural sedation was administered by anesthesia. Examination began with a thorough inspection of the perianal area there was no evidence of fissures, fistulae, external hemorrhoids or cutaneous malignancy. The colonoscopy scope was then placed into the anal canal and was advanced to the cecum, which was identified by the ileocecal valve, the appendiceal orifice and the confluence of the taenia. The scope was then slowly withdrawn examining colon thoroughly in all directions, irrigating it of any residual stool. The scope was retroflexed within the rectum The patient tolerated the procedure well. They will be discharged once criteria are met. The prep was of fair quality. The withdrawl time was 7 minutes. FINDINGS * No masses or polyps * Descending colon mild diverticulosis * Prostate without masses Specimen(s): none sent Impression: Normal colonoscopy Post-procedure Recommendations: High fiber diet Plan for aftercare: No further colonoscopy necessary unless symptomatic Disposition: same day surgery
[2023-10-13 08:44] VITALS: BP 122/67; PULSE 44; RESP 12; O2SAT 96
[2023-10-13 08:48] VITALS: BP 120/84; PULSE 57; RESP 13; TEMP 36.8; O2SAT 95
== END 2023-10-13 09:05 | disposition home or self-care (01) ==
PROVIDERS: PCP Nurse Practitioner; Referring Provider Surgery; Visit Provider Surgery
PROC: 0DJD8ZZ Inspection of Lower Intestinal Tract, Via Natural or Artificial Opening Endoscopic (ICD-10-PCS; CPT 45378; principal; 2023-10-13 08:15)
DX: Z12.11 Encounter for screening for malignant neoplasm of colon (principal); K57.30 Diverticulosis of large intestine without perforation or abscess without bleeding
CPT/HCPCS: G0121; J2704

== ENCOUNTER → 2024-06-22 09:06 | Outpatient (CLI) | payer OTHER, SELFPAY ==
--- NOTE | 2024-06-22 09:08 | DI.CT.S_ITS ---
PROCEDURE: CT LUNG LOW DOSE SCREENING INDICATIONS: Needs F/U Lung CA CT TECHNIQUE: Noncontrast 2.0-2.5 mm thick sections acquired from the pulmonary apices to the posterior costophrenic angles. 7 mm thick axial MIP, and 5 mm coronal and sagittal reformats were then acquired. For radiation dose reduction, the following was used: automated exposure control, adjustment of mA and/or kV according to patient size. COMPARISON: [facility], CT, CT CHEST WO [facility], 07/01/2022, 11:12. FINDINGS: Lower Neck: No enlarged lymph nodes. Thyroid: No thyroid nodules which require sonographic follow up, per consensus guidelines. Axillae: No enlarged lymph nodes. Chest Wall: Unremarkable. Bones: Unremarkable. Lungs and Pleura: No pneumothorax or pleural effusions. No consolidation or suspicious nodules. upper lobe 2 mm calcified granuloma Heart: Heart size is normal. No pericardial effusion. Thoracic Vessels: The aorta and pulmonary arteries demonstrate normal size. Mediastinum and Indigo: No enlarged lymph nodes. Esophagus: No wall thickening. No hiatal hernia. Upper Abdomen: Visualized upper abdomen solid organs and bowel loops appear normal. IMPRESSION: No suspicious pulmonary nodules. LUNG-RADS 1; continued annual screening, if eligible. Approved by: Jam Tamayo M.D. on 06/22/2024 at 18:57
== END ==
PROVIDERS: PCP Family Medicine; Referring Provider Family Medicine; Visit Provider Family Medicine
DX: Z12.2 Encounter for screening for malignant neoplasm of respiratory organs (principal); F17.210 Nicotine dependence, cigarettes, uncomplicated
CPT/HCPCS: 71271

== ENCOUNTER → 2024-06-29 07:15 | Outpatient (CLI) | payer OTHER, SELFPAY ==
[2024-06-29 07:49] LABS: Add Manual Diff / Slide Review NO; Basophils Absolute Auto 100 /uL (0-100); Basophils Percent Auto 1.4 % (0-2); Eosinophils Absolute Auto 200 /uL (0-450); Eosinophils Percent Auto 3.3 % (2-4); Hematocrit 45.2 % (41-53); Hemoglobin 15.6 g/dL (13.5-17.5); Lymphocytes Absolute Auto 2200 /uL (1100-4500); Lymphocytes Percent Auto 37.3 % (25-40); Mean Corpuscular HGB Conc 34.4 % (30-36); Mean Corpuscular Hemoglobin 30.6 PG (26-34); Mean Corpuscular Volume 88.9 fL (80-100); Monocytes Absolute Auto 500 /uL (0-900); Monocytes Percent Auto 7.6 % (3-14); Neutrophils Absolute Auto 3000 /uL (1500-7000); Neutrophils Percent Auto 50.4 % (50-75); Platelet Count 230 X10^3/uL (150-400); Red Blood Cell Count 5.09 X10^6/uL (4.5-5.9); Red Cell Distribution Width 12.8 % (11.6-14.8)
[2024-06-29 08:11] LABS: Alanine Aminotransferase 32 IU/L (<50); Albumin Globulin Ratio 1.8 (1.0-2.8); Alkaline Phosphatase 51 U/L (38-126); Aspartate Aminotransferase 30 IU/L (17-59); BUN Creatinine Ratio 19.7 (6-22); Bilirubin Total 0.5 mg/dL (0.2-1.3); Blood Urea Nitrogen 15 mg/dL (9-20); Carbon Dioxide 23 mmol/L (22-32); Chloride 107 mmol/L (98-107); Cholesterol 190 mg/dL (140-199); Estimated Glomerular Filt Rate > 60 mL/min (>60); Globulin 2.2 g/dL (1.7-4.1); Glucose 104 mg/dL (80-110); HDL Cholesterol 47 mg/dL (40-60); HEMOLYSIS < 15 (0-50); LDL Cholesterol Calculated 128 mg/dL (<100); Potassium 4.5 mmol/L (3.4-5.1); Sodium 138 mmol/L (137-145); Total Protein 6.2 g/dL (6.3-8.2); Triglycerides 77 mg/dL (35-150)
[2024-06-29 08:11] LABS: Creatinine Urine Random 67.73 mg/dL
[2024-06-29 08:19] LABS: Microalbumin Urine Random < 0.6 mg/dL (0-1.6)
[2024-06-29 08:41] LABS: Prostate Specific Antigen Scrn 2.93 ng/mL (0.1-4.0); TSH w/ Reflex to FT4 2.95 uIU/mL (0.47-4.68)
== END ==
PROVIDERS: PCP Family Medicine; Referring Provider Family Medicine; Visit Provider Family Medicine
DX: E78.2 Mixed hyperlipidemia (principal); Z12.5 Encounter for screening for malignant neoplasm of prostate; F32.9 Major depressive disorder, single episode, unspecified; Z71.41 Alcohol abuse counseling and surveillance of alcoholic; F10.90 Alcohol use, unspecified, uncomplicated
CPT/HCPCS: 36415; 80053; 80061; 82043; 82570; 84443; 85025; G0103